=== PATIENT | female | born 1970 | race Caucasian/White ===

== ENCOUNTER 2025-01-07 20:53 | Outpatient (OUT) | payer MEDICARE, SELFPAY | END 2025-01-07 20:54 | disposition home or self-care (01) | LOC: SLEEP 20:55 | PROVIDERS: PCP Nurse Practitioner Family | DX: G47.33 Obstructive sleep apnea (adult) (pediatric) (principal) | CPT/HCPCS: 95810 ==

== ENCOUNTER 2025-02-19 11:22 | Outpatient (OUT) | payer MEDICARE, SELFPAY ==
--- OUTSIDE RECORDS SUMMARY | 2025-02-19 11:25 | XMS_ITS | Encounter Summary ---
Author Organization [facility] Address [address] [place], [place] [id number] Care Team Providers Care Teletype Telegrapher Name Role Phone Shayna Spring MD Primary Care Provider [phone] Reason for Referral * Evaluate and Treat (Routine) - Closed Specialty Diagnoses / Procedures Referred By Contac t Referred To Contact Orthopedic Surgery Diagnoses Rheumatoid arthritis, involving unspecified site, unspecified rheumatoid factor presence Shayna Spring MD [address] [place] [address] Phone: tel: fax: Harjinder Aguillon MD Referral ID Status Reason Start Date Expiration Date Visits Re quested Visits Authorized [id number] Closed 04/04/2017 04/04/2018 1 1 Encounter Details Date Type Department Care Team (Late st Contact Info) Description 04/04/2017 Transcribe Orders [facility] Orthopedic and Sports Medicine [address] [place] [address] [place] [address] Transcribed, External Rheumatoid arthritis, involving unspecified site, unspecified rheumatoid factor presence (HCC) (Primary Dx) Social History Tobacco Use Types Packs/Day Years Used Date Smoking Tobacco: Never Assessed Comments Unknown Sex and Gender Information Value Date Recorded Sex Assigned at Not on file Legal Sex Female 9:04 AM EST Gender Identity Not on file Sexual Orientation Not on file documented as of this encounter Plan of Treatment Scheduled Referrals Name Type Priority Associated Diagnoses Order Schedule Ambulatory referral to Orthopedics Outpatient Referral Routine Rheumatoid arthritis, involving unspecified site, unspecified rheumatoid factor presence (HCC) 1 Occurrences starting 04/04/2017 until 04/04/2018 documented as of this encounter Visit Diagnoses Diagnosis Rheumatoid arthritis, involving unspecified site, unspecified rheumatoid factor presence- Primary documented in this encounter Care Teams Teletype Telegrapher Relationship Specialty Start Date End Date Shayna Spring MD [address] [place], [place] [id number] PCP - General Family Medicine 04/19/17 documented as of this encounter
--- OUTSIDE RECORDS SUMMARY | 2025-02-19 11:25 | XMS_ITS | Encounter Summary ---
Author Organization [facility] Address [facility] [place] [address] Care Team Providers Care Director Employee Communications Name Role Phone Shayna Spring MD Primary Care Provider [phone] Reason for Visit * Reason Comments Medication Refill Encounter Details Date Type Department Care Team (Late st Contact Info) Description 10/23/2019 Refill [facility] Orthopedic and Sports Medicine [address] [place] [address] [place] [address] Harjinder Aguillon MD Seronegative rheumatoid arthritis (HCC) Social History Tobacco Use Types Packs/Day Years Used Date Smoking Tobacco: Never Smokeless Tobacco: Never Alcohol Use Standard Drinks/Week Comments No 0 (1 standard drink = 0.6 oz pur e alcohol) Comments Unknown Sex and Gender Information Value Date Recorded Sex Assigned at Not on file Legal Sex Female 9:04 AM EST Gender Identity Not on file Sexual Orientation Not on file documented as of this encounter Plan of Treatment Not on file documented as of this encounter Visit Diagnoses Diagnosis Seronegative rheumatoid arthritis (HCC) Rheumatoid arthritis documented in this encounter Care Teams Director Employee Communications Relationship Specialty Start Date End Date Shayna Spring MD [address] [place], [place] [id number] PCP - General Family Medicine 04/19/17 documented as of this encounter
--- OUTSIDE RECORDS SUMMARY | 2025-02-19 11:25 | XMS_ITS | Encounter Summary ---
Author Organization [facility] Address [facility] [place] [address] Care Team Providers Care Hvac Services Professional Name Role Phone Shayna Spring MD Primary Care Provider [phone] Reason for Visit * Reason Comments Medication Refill Encounter Details Date Type Department Care Team (Late st Contact Info) Description 12/09/2019 Refill [facility] Orthopedic and Sports Medicine [address] [place] [address] [place] [address] Harjinder Aguillon MD Rheumatoid arthritis, involving unspecified site, unspecified rheumatoid factor presence (HCC) Social History Tobacco Use Types Packs/Day [...] involving unspecified site, unspecified rheumatoid factor presence documented in this encounter Care Teams Hvac Services Professional Relationship Specialty Start Date End Date Shayna Spring MD [address] [place], [place] [id number] PCP - General Family Medicine 04/19/17 documented as of this encounter
--- OUTSIDE RECORDS SUMMARY | 2025-02-19 11:25 | XMS_ITS | Clinical Summary ---
Author Organization [facility] Address [address] [place] [address] Care Team Providers Care Reinforced Steel Placing Supervisor Name Role Phone Unavailable Primary Care Provider Unavailabl e Social History Tobacco Use Types Packs/Day Years Used Date Smoking Tobacco: Never Assessed Comments Unknown Sex and Gender Information Value Date Recorded Sex Assigned at Not on file Legal Sex Female 7:17 PM EDT Gender Identity Not on file Sexual Orientation Not on file Last Filed Vital Signs Vital Sign Reading Time Taken Comments Blood Pressure 129/86 11/14/2019 12:00 PM EDT Pulse - - Temperature - - Respiratory Rate - - Oxygen Saturation - - Inhaled Oxygen Concentration - - Weight 117 kg (258 lb) 11/14/2019 12:00 PM EDT Height 170.2 cm (5' 7 ) 11/14/2019 12:00 PM EDT Body Mass Index 40.41 11/14/2019 12:00 PM EDT Plan of Treatment Not on file
--- OUTSIDE RECORDS SUMMARY | 2025-02-19 11:25 | XMS_ITS | Clinical Summary ---
Author Organization [facility] Address [address] [facility], [address] [place] [address] Care Team Providers Care Snapper On Name Role Phone Andrei Spring MD Primary Care Provider [phone] Allergies Active Allergy Reactions Criticality Noted Date Comments Sulfamethoxazole-Trimethop rim Nausea And Vomiting Low 12/22/2020 Severe n/v Sulfamethoxazole 10/20/2023 Other Reaction(s): vomiting/dizzines s Trimethoprim 10/20/2023 Other Reaction(s): vomiting/dizzines s Medications methotrexate (RHEUMATREX) 2.5 MG chemo tablet Take 1 tablet by mouth once a week 6 tablets weekly Active folic acid (FOLVITE) 1 MG tablet Take 1 tablet by mouth daily Except day takes Methotrexate Active gabapentin (NEURONTIN) 100 MG capsule Take 1 capsule by mouth 3 times daily. Active meloxicam (MOBIC) 15 MG tablet Take 1 tablet by mouth daily Active SEMAGLUTIDE PO 2.25 injection 4 Active raNITIdine HCl (ZANTAC 150 MAXIMUM STRENGTH PO) See Instructions, take 1 tab po daily, Refills(s) 0 4 Active phenazopyridine (PYRIDIUM) 200 MG tablet Take by mouth every 8 (eight) hours 2 Active predniSONE (DELTASONE) 20 MG tablet Take by mouth 2 Active Semaglutide-Jasson ght Management (WEGOVY) 1.7 MG/0.75ML SOAJ SC injection Inject 1.7 mg into the skin 4 Active Upadacitinib ER 15 MG TB24 Upadacitinib (Rinvoq) 15 mg tablet extended release 24 hr Active 15 MG PO Daily December 06, 2023 12:00am 4 Active Active Problems Patient Care Coordination No te Formatting of this note migh t be different from the original. Dr. Malachi Pinto Surgery Prep: Dx: Urinary incontinence, Cystocele Procedure: Axonics sacral neuromodulator Stage I, Possible cystocele repair Med Hx: unknown Medications: Aleve (hold for 2 days) Allergies: Bactrim PATs: BMP with Cr 0.79 & otherwise wnl, WBC 6.2/ Hgb 13.3/ Hct 40.6/ Plt 235, MRSA unk Preop orders needed: Antibiotics: Ancef 2g Scop patch: No Pyridium: Yes if doing cystocele Inpatient orders needed: No ERAS: No Lovenox POD#1 @ 0500 CBC, BMP POD#1 @0600 Discharge: Antibiotics: Keflex 500 TID x 3d-7d if ayala catheter Other: [place] (#28), Motrin 600mg q6hr PRN (#30), Senokot S BID (#30), Zofran (#15) and Flomax 0.4mg qd x7d (#7) Problem Noted Date Diagnosed Date S/p Axonics sacral neuromodulation 01/14/2101/14 Family History Relation Name Status Comments Father Mother Alive Social History Tobacco Use Types Packs/Day Years Used Date Smoking Tobacco: Never Smokeless Tobacco: Never Tobacco Cessation:Counseling Given: Not Answered Alcohol Use Standard Drinks/Week Comments Not Currently 0 (1 standard drink = 0.6 oz pur e alcohol) Comments No Sex and Gender Information Value Date Recorded Sex Assigned at Not on file Legal Sex Female 9:20 AM EST Gender Identity Not on file Sexual Orientation Not on file Last Filed Vital Signs Vital Sign Reading Time Taken Comments Blood Pressure 122/76 12/12/2023 9:34 AM EDT Pulse 77 12/12/2023 9:34 AM EDT Temperature 36.5 C (97.7 F) 12/12/2023 9:34 AM EDT Respiratory Rate 16 12/12/2023 9:34 AM EDT Oxygen Saturation 93% 12/12/2023 9:34 AM EDT Inhaled Oxygen Concentration - - Weight 106.3 kg (234 lb 6.4 oz) 12/12/2023 9:34 AM EDT Height 166.4 cm (5' 5.5 ) 12/12/2023 9:34 AM EDT Body Mass Index 38.41 12/12/2023 9:34 AM EDT Plan of Treatment Health Maintenance Due Date Last Done Comments Depression Screen 1980 HIV screen 02/19/1983 Hepatitis C screen 02/19/1986 DTaP/Tdap/Td vaccine (1 - Tdap) 02/19/1987 Hepatitis B vaccine (1 of 3 - 19+ 3-dose series) 02/19/1987 Breast cancer screen 2008 Lipids 2008 Colonoscopy 02/19/2013 Colorectal Cancer Screen 02/19/2013 FIT/FOBT: Average risk 02/19/2013 Fecal-DNA (Cologuard): Average risk 02/19/2013 Sigmoidoscopy/CT colonography 02/19/2013 Pneumococcal 50+ years Vaccine (2 of 2 - PCV) 06/25/2020 06/25/2019 Annual Wellness Visit (Medicare Advantage) 05/22/2024 Flu vaccine (#1) 12/20/2024 03/28/2023, 08/2019, 03/15/2018, Additional history exists COVID-19 Vaccine (2024- season) 2025 05/01/2023, 04/11/2023, 04/02/2021, Additional history exists Pneumococcal 0-49 years Vaccine Discontinued 06/25/2019 Shingles vaccine Completed 02/07/2020, 12/02/2019 Hepatitis A vaccine Aged Out No longe r eligible based on patient's age to complete this topic Hib vaccine Aged Out No longer eligi ble based on patient's age to complete this topic Meningococcal (ACWY) vaccine Aged Out No longer eligible based on patient's age to complete this topic Meningococcal B vaccine Aged Out No l onger eligible based on patient's age to complete this topic Polio vaccine Aged Out No longer elig ible based on patient's age to complete this topic Medical Devices Implanted Type Area Stopper Setter Device Identifier Shelf Expiration Date Model / Serial / Lot Impl Spine Kit Lead Ashlie - [id number] Implanted:Qty: 1 on 12/31/2020 by Malachi Pinto DO at [facility] Spine:St imulator N/A: Back [employer]-PMM 06/06/2022 1201 / [id number] / Description:verified and nigel eze on field Stimulator Generator Internal Axonics - [id number] Implanted:Qty: 1 on 01/14/2021 by Malachi Pinto DO at [facility] Spine:St imulator Right: Buttocks [employer]-PMM 07/09/2022 1101 / [id number] / [id number] [facility] MEDICARE Care Teams Snapper On Relationship Specialty Start Date End Date Andrei Spring MD [address] [place] [address] [place] [address] PCP - General Family Medicine 11/09/23
--- OUTSIDE RECORDS SUMMARY | 2025-02-19 11:25 | XMS_ITS | Encounter Summary ---
Author Organization [facility] Address [facility] [place] [address] Care Team Providers Care Chainstitch Felled Seam Operator Name Role Phone Shayna Spring MD Primary Care Provider [phone] Reason for Visit * Reason Comments Medication Refill Encounter Details Date Type Department Care Team (Late st Contact Info) Description 11/15/2019 Refill [facility] Orthopedic and Sports Medicine [address] [place] [address] [place] [address] Harjinder Aguillon MD Seronegative rheumatoid [...] arthritis documented in this encounter Care Teams Chainstitch Felled Seam Operator Relationship Specialty Start Date End Date Shayna Spring MD [address] [place], [place] [phone] PCP - General Family Medicine 04/19/17 documented as of this encounter
== END 2025-02-19 11:23 | disposition home or self-care (01) ==
LOC: SLEEP 11:22
DX: G47.19 Other hypersomnia (principal)

== ENCOUNTER 2025-05-08 08:55 | Outpatient (OUT) | payer MEDICARE, SELFPAY ==
--- OUTSIDE RECORDS SUMMARY | 2025-05-08 08:59 | XMS_ITS | Clinical Summary ---
Author Organization [facility] Address [facility] [place] [address] Care Team Providers Care Car Attendant Name Role Phone Shayna Spring MD Primary Care Provider [phone] Allergies No known active allergies Medications MedicationSigDispense QuantityRefillsLast FilledStart DateEnd DateStatus amitriptyline (ELAVIL) 25 MG tablet Take 25 mg by mouth nightly.03/31/2017Active escitalopram oxalate (LEXAPRO) 20 MG tablet Take 20 mg by mouth daily.03/27/2017Active oxybutynin (DITROPAN-XL) 10 MG 24 hr tablet Take 10 mg by mouth daily.03/27/2017Active naproxen sodium (ALEVE) 220 MG tablet Take 220 mg by mouth 2 (two) times a day as needed.Active biotin 1 mg tablet Take 1,000 mcg by mouth 2 (two) times a day.Active methotrexate (TREXALL) 2.5 MG tablet Indications:Seronegative rheumatoid arthritis (HCC)TAKE EIGHT TABLETS BY MOUTH EVERY MONDAY AFTER SUPPER . 32 tablet Active adalimumab 40 mg/0.4 mL SyKt Indications:Rheumatoid arthritis, involving unspecified site, unspecified rheumatoid factor presenceInject 40 mg under the skin every 14 (fourteen) days . 2 each Active folic acid (FOLVITE) 1 MG tablet Indications:Seronegative rheumatoid arthritis (HCC)TAKE ONE TABLET BY MOUTH DAILY EXCEPT ON FRIDAYS . 24 tablet Active tolterodine (DETROL) 2 MG tablet Take 2 mg by mouth 2 (two) times a day .08/08/2019Active Active Problems ProblemNoted DateDiagnosed DateRadiculopathy of lumbar wfqasq4203/08/2018 Family History RelationStatusCommentsFatherDeceasedMotherAlive Social History Tobacco UseTypesPacks/DayYears UsedDateSmoking Tobacco: NeverSmokeless Tobacco: NeverAlcohol UseStandard Drinks/WeekCommentsNo0 (1 standard drink = 0.6 oz pure alcohol)CommentsUnknownSex and Gender InformationValueDate RecordedSex Assigned at BirthNot on fileLegal BatRsujhc30/14/2017 9:04 AM ESTGender Identity Not on fileSexual OrientationNot on file Last Filed Vital Signs Vital SignReadingTime TakenCommentsBlood Eongsqam264/8904 10:48 AM EDT Eqvih0152 10:48 AM EDTTemperature--Respiratory Rate--Oxygen Saturation-- Inhaled Oxygen Concentration--Wcgtyk917.8 kg (262 lb)09/03/2019 10:48 AM EDT Fpffqo282.7 cm (5' 8 )04/19/2018 2:36 PM ESTBody Mass Index39.8404/19/2018 2:36 PM EST Plan of Treatment Health MaintenanceDue DateLast DoneCommentsCT Zqenzbacxkie1968Colonoscopy 1968Colorectal Cancer Screening/Ighwspccye1968Fecal DNA1968 Fecal occult blood test (FOBT,FIT)1968Wellness Visit02/19/1971Depression Screening/Follow-Up (PHQ-2/9)1980HIV Plkjqcoey09/01/1983Hepatitis B Vaccines (1 of 3 - 19+ 3-dose series)02/19/1987Tetanus/Diphtheria/Pertussis (1 - Tdap)02/19/1987Pap Smear02/19/1989Cervical Cancer Wibxrwdxv18/01/1998HPV/Cotest 02/19/1998Pneumococcal Vaccine: 50+ Years (1 of 1 - PCV)02/19/2018Zoster Vaccines (1 of 2)02/19/2018COVID-19 Vaccine (1 - 2024- season)2025 Influenza Vaccine (#1)2025RSV Vaccines (1 - 1-dose 75+ series)02/19/2043 Hepatitis C XwsyudffcRlzwnmawm89/29/2017HIB VaccinesAged OutNo longer eligible based on patient's age to complete this topicHPV VaccinesAged OutNo longer eligible based on patient's age to complete this topicHepatitis A VaccinesAged OutNo longer eligible based on patient's age to complete this topicIPV Vaccines Aged OutNo longer eligible based on patient's age to complete this topic Meningococcal ACWY VaccineAged OutNo longer eligible based on patient's age to complete this topicMeningococcal B VaccineAged OutNo longer eligible based on patient's age to complete this topicRotavirus VaccinesAged OutNo longer eligible based on patient's age to complete this topic Procedures Procedure NamePriorityDate/TimeAssociated DiagnosisCommentsHEPATITIS C ANTIBODY Aepbagw8104/19/2017 2:28 PM EST Encounter for general adult medical examination without abnormal findings from Last 3 Months or Most Recently Relevant to Health Maintenance Results * Hepatitis C Antibody (04/19/2017 2:28 PM EST)ComponentValueRef RangeTest MethodAnalysis TimePerformed AtPathologist SignatureHepatitis C AbNegative Vrxkhaxh05/29/2017 10:16 PM [facility] LABSpecimen (Source)Anatomical Location / LateralityCollection Method / VolumeCollection TimeReceived TimeBloodBLOOD SPECIMEN / Rnxvdko3004/19/2017 2:28 PM EST04/19/2017 8:44 PM EST Narrative [facility] - 04/19/2017 10:16 PM EST Test performed using LessnoS Immunodiagnostic system. Authorizing ProviderResult TypeResult StatusDavid Abdullahi Henna MCCARTHY BLOOD ORDERABLESFinal ResultPerforming OrganizationAddressCity/State/ZIP CodePhone Number [facility] [address] [place] [address] from Last 3 Months or Most Recently Relevant to Health Maintenance Insurance Care Teams Team MemberRelationsModesto State HospitalpecialtyStart DateEnd Date Shayna Spring MD [address] [place] [address] [facility] Yvcbpahl75/29/17
--- OUTSIDE RECORDS SUMMARY | 2025-05-08 08:59 | XMS_ITS | Clinical Summary ---
Author Organization [facility] Address [address] [place] [address] Care Team Providers Care Licensed Retail Supervisor Name Role Phone Unavailable Primary Care Provider Unavailabl e Social History Tobacco UseTypesPacks/DayYears UsedDateSmoking Tobacco: Never Assessed CommentsUnknownSex and Gender InformationValueDate RecordedSex Assigned at Not on fileLegal WopMrkgfj54/15/2023 7:17 PM EDTGender IdentityNot on fileSexual OrientationNot on file Last Filed Vital Signs Vital SignReadingTime TakenCommentsBlood Bsulbmps883/8606 12:00 PM EDT Pulse--Temperature--Respiratory Rate--Oxygen Saturation--Inhaled Oxygen Concentration--Zhiaiz404 kg (258 lb)11/14/2019 12:00 PM HBLFjktwh406.2 cm (5' 7 )11/14/2019 12:00 PM EDTBody Mass Index40.4106 12:00 PM EDT Plan of Treatment Not on file
--- OUTSIDE RECORDS SUMMARY | 2025-05-08 08:59 | XMS_ITS | Clinical Summary ---
Author Organization [facility] Address [address] [facility], [address] [place] [address] Care Team Providers Care Pigment Mixer Name Role Phone Andrei Spring MD Primary Care Provider [phone] Allergies Active AllergyReactionsCriticalityNoted DateComments Sulfamethoxazole-TrimethoprimNausea And IhhxqhbkNcl74/03/2021 Severe n/v Mxvyvlppknribblt11/31/2024 Other Reaction(s): vomiting/dizziness Shbmhflijfyq99/31/2024 Other Reaction(s): vomiting/dizziness Medications MedicationSigDispense QuantityRefillsLast FilledStart DateEnd DateStatus methotrexate (RHEUMATREX) 2.5 MG chemo tablet Take 1 tablet by mouth once a week 6 tablets weeklyActive folic acid (FOLVITE) 1 MG tablet Take 1 tablet by mouth daily Except day takes MethotrexateActive gabapentin (NEURONTIN) 100 MG capsule Take 1 capsule by mouth 3 times daily.Active meloxicam (MOBIC) 15 MG tablet Take 1 tablet by mouth dailyActive SEMAGLUTIDE PO 2.25 buhoyvdvt33/31/2024ctive raNITIdine HCl (ZANTAC 150 MAXIMUM STRENGTH PO) See Instructions, take 1 tab po daily, Refills(s) ctive phenazopyridine (PYRIDIUM) 200 MG tablet Take by mouth every 8 (eight) hours12/10/2021ctive predniSONE (DELTASONE) 20 MG tablet Take by mouth11/04/2021ctive Semaglutide-Weight Management (WEGOVY) 1.7 MG/0.75ML SOAJ SC injection Inject 1.7 mg into the skin09/25/2023ctive Upadacitinib ER 15 MG TB24 Upadacitinib (Rinvoq) 15 mg tablet extended release 24 hr Active 15 MG PO Daily December 06, 2023 12:00am12/06/2023ctive Active Problems Patient Care Coordination No te [...] TID x 3d-7d if ayala catheter Other: [place] (#28), Motrin 600mg q6hr PRN (#30), Senokot S BID (#30), Zofran (#15) and Flomax 0.4mgqd x7d (#7) ProblemNoted DateDiagnosed DateS/p Axonics sacral neuromodulation 01/14/21 01/14/2021 Family History RelationNameStatusCommentsFatherDeceasedMotherAlive Social History Tobacco UseTypesPacks/DayYears UsedDateSmoking Tobacco: NeverSmokeless Tobacco: Never Tobacco Cessation:Counseling Given: Not Answered Alcohol UseStandard Drinks/WeekCommentsNot Currently0 (1 standard drink = 0.6 oz pure alcohol)CommentsNoSex and Gender InformationValueDate RecordedSex Assigned at BirthNot on fileLegal FicXyxyki22/10/2013 9:20 AM ESTGender Identity Not on fileSexual OrientationNot on file Last Filed Vital Signs Vital SignReadingTime TakenCommentsBlood Rfcnsxzn154/7607 9:34 AM EDT Miuxj4967 9:34 AM TEGPwadexcbxpi35.5 ??C (97.7 ??F)12/12/2023 9:34 AM EDTRespiratory Fjul738112/12/2023 9:34 AM EDTOxygen Vfaonctfzi12%12/12/2023 9:34 AM EDTInhaled Oxygen Concentration--Wzutnt148.3 kg (234 lb 6.4 oz)12/12/2023 9:34 AM KATNfukjz882.4 cm (5' 5.5 )12/12/2023 9:34 AM EDTBody Mass Index38.41 12/12/2023 9:34 AM EDT Plan of Treatment Health MaintenanceDue DateLast DoneCommentsDepression Veadag0402/20/1980HIV screen 02/19/1983Hepatitis C wgqvdv4802/19/1986DTaP/Tdap/Td vaccine (1 - Tdap)02/19/1987 Hepatitis B vaccine (1 of 3 - 19+ 3-dose series)02/19/1987Breast cancer screen 02/20/20084067Epbmrn94/01/2290Aqbrfknpxzz57/01/2013Colorectal Cancer Screen 02/19/2013FIT/FOBT: Average risk02/19/2013Fecal-DNA (Cologuard): Average risk 02/19/2013Sigmoidoscopy/CT huhianqyrwri19/01/2013Pneumococcal 50+ years Vaccine (2 of 2 - PCV)Annual Wellness Visit (Medicare Advantage) 05/22/2024Flu vaccine (#1)511/11/2022, 06/25/2019, 03/15/2018, Additional history existsCOVID-19 Vaccine ( season)2025 05/01/2023, 04/11/2023, 04/02/2021, Additional history existsPneumococcal 0-49 years CusoskeKrrqpobyyiha21/04/2020Shingles jjlyexzZpkitswyz21/18/2020, 12/02/2019Hepatitis A vaccineAged OutNo longer eligible based on patient's age to complete this topicHib vaccineAged OutNo longer eligible based on patient's age to complete this topicMeningococcal (ACWY) vaccineAged OutNo longer eligible based on patient's age to complete this topicMeningococcal B vaccineAged OutNo longer eligible based on patient's age to complete this topicPolio vaccineAged OutNo longer eligible based on patient's age to complete this topic Medical Devices ImplantedTypeAreaManufacturerDevice IdentifierShelf Expiration DateModel / Serial / LotImpl Spine Kit Lead Tined - [id number] Implanted:Qty: 1 [facility] 12/31/[facility]im[facility]N/A: Back[employer]-PMM 201 / [id number] / Description:verified and placed on fieldStimulator Generator Internal [employer]ics - [id number] Implanted:Qty: 1 on 01/14/2021 [facility]:StimulatorRight: Buttocks[employer]-PMM 101 / [id number] / [id number] Insurance Care Teams Team MemberRelationshipSpecialtyStart DateEnd Date Andrei Spring MD [address] [place] [address] [place] [address] PCP - GeneralFamily Medicine11/09/23
== END 2025-05-08 08:56 | disposition home or self-care (01) ==
LOC: FHNEUROLOG 08:55
PROVIDERS: Visit Provider Psychiatry & Neurology Neurology
DX: G47.19 Other hypersomnia (principal)
CPT/HCPCS: G0463